=== PATIENT | female | born 1975 | race African-American/Black ===

== ENCOUNTER 2020-11-08 07:18 | Emergency (ER) | payer BC ==
[2020-11-08 07:30] VITALS: BMI 36.6
[2020-11-08] MEDS ORDERED: ACETAMINOPHEN 1000 MG/100 ML VIAL (NON FORMULARY) IVPB ONE (07:52)
[2020-11-08] MEDS ORDERED: ACETAMINOPHEN INJECTION 100 ML IVPB ONE (08:16)
[2020-11-08 08:24] LABS: EPI CELLS 26 /uL (0-25.1); HYALINE CASTS 3 /uL (0-3.1); PH,URINE 5.5 (5.0-8.0); URINE BILIRUBIN NEGATIVE (NEGATIVE); URINE GLUCOSE (UA) NEGATIVE (NEGATIVE); URINE KETONE NEGATIVE (NEGATIVE); URINE LEUK ESTERASE NEGATIVE (NEGATIVE); URINE NITRITE NEGATIVE (NEGATIVE); URINE PROTEIN 1+ (NEGATIVE); URINE RBC 17 /uL (0-23.9); URINE UROBILINOGEN 0.2 mg/dL (0.2-1.0); URINE WBC 13 /uL (0-25.8)
[2020-11-08 08:25] LABS: HCG,QUALITATIVE URINE Negative
[2020-11-08 08:35] LABS: BASO % 1.1 % (0-2.0); EOS % 2.4 % (0-4.5); HEMATOCRIT 34.3 % (32.4-45.2); HEMOGLOBIN 10.5 GM/dL (10.7-15.3); LYMPH % 21.6 % (8-40); MCHC 30.7 g/dl (32.0-36.0); MEAN CELL VOLUME 64.4 fl (80-96); MEAN PLT VOLUME 9.1 fl (7.5-11.1); NEUT % 67.9 % (42.8-82.8); PLATELET COUNT 350 K/MM3 (134-434); RBC 5.33 M/mm3 (3.60-5.2); RDW 22.1 % (11.6-15.6); WHITE BLOOD COUNT 13.1 K/mm3 (4.0-10.0)
[2020-11-08 08:42] LABS: URINE BACTERIA NO SEEN /uL (0-1359); URINE COLOR RED
[2020-11-08 08:43] LABS: URINE APPEARANCE BLOODY
[2020-11-08 08:53] LABS: MCH 19.8 pg (25.7-33.7)
[2020-11-08 08:54] LABS: CHLORIDE 106 mmol/L (98-107); SODIUM 134 mmol/L (136-145)
[2020-11-08 08:56] LABS: ALBUMIN 3.4 g/dl (3.4-5.0); BLOOD UREA NITROGEN 8.2 mg/dL (7-18); CALCIUM 8.9 mg/dL (8.5-10.1); CO2 25 mmol/L (21-32)
[2020-11-08 08:57] LABS: GLUCOSE,RANDOM 115 mg/dL (74-106)
[2020-11-08 08:59] LABS: ANION GAP 3 MMOL/L (8-16); CREATININE 0.7 mg/dL (0.55-1.3); SGPT/ALT 25 U/L (13-61)
[2020-11-08 09:00] LABS: SGOT/AST 53 U/L (15-37)
[2020-11-08 09:01] LABS: BILIRUBIN,TOTAL 0.4 mg/dL (0.2-1)
[2020-11-08 09:02] LABS: ALK PHOS 97 U/L (45-117)
[2020-11-08 11:39] LABS: CALCIUM 9.3 mg/dL (8.5-10.1)
[2020-11-08 11:40] LABS: BLOOD UREA NITROGEN 7.3 mg/dL (7-18)
[2020-11-08 11:43] LABS: CREATININE 0.6 mg/dL (0.55-1.3)
[2020-11-08 12:13] VITALS: BP 134/74; PULSE 78; TEMP 98
== END 2020-11-08 12:02 | disposition home or self-care (01) ==
LOC: JER 07:18
PROC: 3E0333Z Introduction of Anti-inflammatory into Peripheral Vein, Percutaneous Approach (ICD-10-PCS; principal; 2020-11-08)
DX: R31.9 Hematuria, unspecified (principal)
CPT/HCPCS: 36415; 74176-TC; 76856-TC; 80048; 80053; 81003; 84703; 85025; 87086; 99285-25; J0131